=== PATIENT | female | born 1955 | race African-American/Black ===

== ENCOUNTER → 2016-05-05 | Outpatient (CLI) | payer MEDICARE, OTHER ==
[2015-12-10 02:05] VITALS: BP 206/97
[~2016-05-05] MED LIST: ASPI-482 PO; CHOL500050 PO; CYCL10TA2 PO; DOCU-27 PO; ESTR30CR VG; GLIP5TAB10 PO; IBUP200T77 PO; LISI10TA2 PO; METF10002 PO; OXYC-323 PO; PRAV10TA2 PO; SITA100T PO
--- NOTE | 2016-05-05 13:23 | RAD ---
Chest, 2 views, 05/05/2016: History: Chest congestion and cough Comparison is made to a study from 12/10/2015. The heart size and pulmonary vascularity are normal. On the lateral view there appears to be minimal infiltrate posteriorly in one of the lung bases. This probably lies on the right. The lungs are otherwise clear. No pleural fluid is evident. IMPRESSION: Probable minimal right basilar pneumonitis.
== END | disposition home or self-care (01) ==
LOC: RAD 11:37
PROVIDERS: ATTEND Family Medicine
DX: R09.89 Other specified symptoms and signs involving the circulatory and respiratory systems (principal); R91.8 Other nonspecific abnormal finding of lung field
CPT/HCPCS: 71020

== ENCOUNTER → 2016-08-17 | Outpatient (CLI) | payer MEDICARE, OTHER ==
[2015-12-10 02:05] VITALS: BP 206/97
[2016-08-17 10:17] LABS: ALBUMIN 3.2 g/dL (3.4-5.0); ALBUMIN/GLOBULIN RATIO 0.8 (1.0-1.7); CALCIUM 8.9 mg/dL (8.5-10.1); CREATININE 0.6 mg/dL (0.6-1.0); GFR 123.4; POTASSIUM 4.4 mmol/L (3.5-5.1); TOTAL BILIRUBIN 0.2 mg/dL (0.2-1.0)
[2016-08-17 10:20] LABS: CHOLESTEROL/HDL RATIO 4.7
[2016-08-18 02:12] LABS: VITAMIN D25(OH)TOTAL 12.5 ng/mL (30.0-100.0)
== END | disposition home or self-care (01) ==
LOC: LAB 09:15
PROVIDERS: ATTEND Family Medicine
DX: E11.9 Type 2 diabetes mellitus without complications (principal); E55.9 Vitamin D deficiency, unspecified; E78.5 Hyperlipidemia, unspecified
CPT/HCPCS: 36415; 80053; 80061; 82306; 83036

== ENCOUNTER 2016-12-28 20:42 | Emergency (ER) | payer MEDICARE, OTHER ==
[~2016-12-28] VITALS: Ht 157.5 cm; Wt 59.0 kg
[~2016-12-28 20:42] MED LIST changes: +DOCU-109 PO; -DOCU-27 PO; +METF-620 PO; -METF10002 PO
[2016-12-28] MEDS ORDERED: IV NORMAL SALINE 500ML BAG 500 ML IV ONE (22:00)
[2016-12-28 22:16] LABS: BASO # 0.1 x10^3/uL (0.0-0.2); BASO % 1 % (0-3); EOS % 2 % (0-3); HEMATOCRIT 40.6 % (36.0-47.0); HEMOGLOBIN 13.4 g/dL (12.0-15.5); LYMPH # 1.5 x10^3/uL (1.0-4.8); LYMPH % 16 % (24-48); MEAN CORPUSCULAR HEMOGLOBIN 31 pg (25-35); MEAN CORPUSCULAR HGB CONC 33 g/dL (31-37); MEAN CORPUSCULAR VOLUME 93 fL (79-100); MONO % 10 % (0-9); NEUT % 72 % (31-73); PLATELET COUNT 369 x10^3/uL (140-400); RED BLOOD COUNT 4.36 x10^6/uL (3.50-5.40); RED CELL DISTRIBUTION WIDTH 13.6 % (11.5-14.5); WHITE BLOOD COUNT 9.7 x10^3/uL (4.0-11.0)
[2016-12-28 22:28] LABS: CREATININE 0.7 mg/dL (0.6-1.0); GFR 102.9; POTASSIUM 4.2 mmol/L (3.5-5.1)
[2016-12-28 23:00] VITALS: BP 169/79
[2016-12-28] MEDS ORDERED: AZIT250T PO (23:15)
--- NOTE | 2016-12-28 23:16 | PHYS DOC ---
Past Medical History Past Medical History: Diabetes-Type II, High Cholesterol, Hypertension Past Surgical History: Hysterectomy, Other Additional Past Surgical Histo: BX VAGINA, right shoulder Alcohol Use: None Drug Use: None Adult General Chief Complaint Chief Complaint: Congestion HPI HPI 21-year-old female with a history of type 2 diabetes and long-term tobacco abuse quit one year ago now presents the emergency department complaining of productive cough. Patient denies fevers chills sweats or shaking chills. She states she has a vault a mildly productive cough over the last Ovral days. She has no headache or stiff neck. She does have some discomfort with coughing but does not have exertional chest pain or pleuritic pain. Was concerned she had a pulmonary infection since she came to the emergency department. Review of Systems Review of Systems Constitutional: Denies fever or chills [] Eyes: Denies change in visual acuity, redness, or eye pain [] HENT: Denies nasal congestion or sore throat [] Respiratory: Denies cough or shortness of breath [] Cardiovascular: No additional information not addressed in HPI [] GI: Denies abdominal pain, nausea, vomiting, bloody stools or diarrhea [] : Denies dysuria or hematuria [] Musculoskeletal: Denies back pain or joint pain [] Integument: Denies rash or skin lesions [] Neurologic: Denies headache, focal weakness or sensory changes [] Endocrine: Denies polyuria or polydipsia [] Current Medications Current Medications Current Medications Medications (Trade) Dose Ordered Sig/Giorgio Start Time Stop Time Status Last Admin Dose Admin Sodium Chloride 500 ml @ 500 mls/hr 1X ONCE 12/28/16 22:00 12/28/16 22:59 DC 12/28/16 22:33 500 MLS/HR Allergies Allergies Allergies Coded Allergies Type Severity Reaction Last Updated Verified codeine Adverse Reaction Intermediate Nausea and Vomiting 09/11/15 Yes Physical Exam Physical Exam Well-appearing 61-year-old female no acute distress no tachypnea normal respiratory rate and pulse ox. Occasional scattered rhonchi bilaterally with no wheezes rales or rubs. Regular rate and rhythm no tachycardia. Benign abdomen. Remainder of exam is unremarkable. Nonfocal neurologically. Constitutional: Well developed, well nourished, no acute distress, non-toxic appearance. [] HENT: Normocephalic, atraumatic, bilateral external ears normal, oropharynx moist, no oral exudates, nose normal. [] Eyes: PERRLA, EOMI, conjunctiva normal, no discharge. [] Neck: Normal range of motion, no tenderness, supple, no stridor. [] Cardiovascular:Heart rate regular rhythm, no murmur [] Lungs & Thorax: As above Abdomen: Bowel sounds normal, soft, no tenderness, no masses, no pulsatile masses. [] Skin: Warm, dry, no erythema, no rash. [] Back: No tenderness, no CVA tenderness. [] Extremities: No tenderness, no cyanosis, no clubbing, ROM intact, no edema. [] Neurologic: Alert and oriented X 3, normal motor function, normal sensory function, no focal deficits noted. [] Psychologic: Affect normal, judgement normal, mood normal. [] Current Patient Data Vital Signs Vital Signs Date Time Temp Pulse Resp B/P (MAP) Pulse Ox O2 Delivery O2 Flow Rate FiO2 12/28/16 21:07 99.2 99 22 187/93 (124) 97 Room Air 99.2 Lab Values Laboratory Tests Test 12/28/16 21:04 White Blood Count 9.7 x10^3/uL (4.0-11.0) Red Blood Count 4.36 x10^6/uL (3.50-5.40) Hemoglobin 13.4 g/dL (12.0-15.5) Hematocrit 40.6 % (36.0-47.0) Mean Corpuscular Volume 93 fL (79-100) Mean Corpuscular Hemoglobin 31 pg (25-35) Mean Corpuscular Hemoglobin Concent 33 g/dL (31-37) Red Cell Distribution Width 13.6 % (11.5-14.5) Platelet Count 369 x10^3/uL (140-400) Neutrophils (%) (Auto) 72 % (31-73) Lymphocytes (%) (Auto) 16 % (24-48) L Monocytes (%) (Auto) 10 % (0-9) H Eosinophils (%) (Auto) 2 % (0-3) Basophils (%) (Auto) 1 % (0-3) Neutrophils # (Auto) 7.0 x10^3uL (1.8-7.7) Lymphocytes # (Auto) 1.5 x10^3/uL (1.0-4.8) Monocytes # (Auto) 1.0 x10^3/uL (0.0-1.1) Eosinophils # (Auto) 0.2 x10^3/uL (0.0-0.7) Basophils # (Auto) 0.1 x10^3/uL (0.0-0.2) Sodium Level 136 mmol/L (136-145) Potassium Level 4.2 mmol/L (3.5-5.1) Chloride Level 99 mmol/L (98-107) Carbon Dioxide Level 29 mmol/L (21-32) Anion Gap 8 (6-14) Blood Urea Nitrogen 8 mg/dL (7-20) Creatinine 0.7 mg/dL (0.6-1.0) Estimated GFR (Cockcroft-Gault) 102.9 Glucose Level 202 mg/dL (70-99) H Calcium Level 9.0 mg/dL (8.5-10.1) Troponin I Quantitative < 0.017 ng/mL (0.000-0.055) Laboratory Tests 12/28/16 21:04 Laboratory Tests 12/28/16 21:04 EKG EKG EKG with normal sinus rhythm at 100 normal axis no STEMI interpreted by me [] Radiology/Procedures Radiology/Procedures Chest x-ray with chronic changes no acute disease interpreted by ak Course & Med Decision Making Course & Med Decision Making Pertinent Labs and Imaging studies reviewed. (See chart for details) Signs and symptoms consistent with bronchitis versus atypical pneumonia versus possible pneumonia. I unremarkable the patient does have persistent DRY cough sometimes unrelenting. Normal respiratory rate and pulse ox. Chest x-ray unremarkable EKG benign. Remainder of labs so benign. Patient stable on multiple re-evaluations. We'll prescribe Zithromax and she's were to use Mucinex DM as needed. No further workup or treatment indicated. Patient agrees with outpatient follow-up and strict return precautions given. [] Dragon Disclaimer Dragon Disclaimer This electronic medical record was generated, in whole or in part, using a voice recognition dictation system. Departure Departure Impression: Primary Impression: Atypical pneumonia Additional Impression: Cough Disposition: HOME, SELF-CARE Condition: GOOD Referrals: OFELIA ZHONG MD (PCP) Additional Instructions: Findings are consistent with a respiratory infection and possible atypical pneumonia. Atypical Money is also known as walking pneumonia and is a low-grade infection that causes dry cough which is persistent sometimes for weeks and does not resolve without anabolic treatment. We did new Zithromax as a prescription to cover this. Use Mucinex DM as needed for cough and to break up mucus. Rest and drink plenty of fluids. Follow-up with your doctor in 1 day and return immediately for new severe or worsening symptoms. Scripts Azithromycin (ZITHROMAX) 250 Mg Tablet 1 PKG PO UD, #6 TAB Take 2 tablets on day 1 and 1 tablet a day for the remaining 4 days Prov: SYLVIA LEY MD 12/28/16 Problem Qualifiers SYLVIA LEY MD Dec 28, 2016 23:16
--- NOTE | 2016-12-29 08:16 | RAD ---
Exam performed: One view chest. Indication: , Shortness of breath Date of Service: 12/28/2016 11:53 PM Comparison: 05/05/16 Single AP upright portable view chest findings: Cardiomediastinal silhouette is within limits of normal. No acute infiltrates, effusion or pneumothorax is detected. The bony structures are normal. Impression: No acute cardiopulmonary process is detected.
--- NOTE | 2016-12-29 08:17 | EKG ---
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
== END 2016-12-28 23:22 | disposition home or self-care (01) ==
LOC: ER 20:42
DX: J18.9 Pneumonia, unspecified organism (principal); R07.89 Other chest pain; E11.9 Type 2 diabetes mellitus without complications; E78.00 Pure hypercholesterolemia, unspecified; I10 Essential (primary) hypertension; Z87.891 Personal history of nicotine dependence; Z88.5 Allergy status to narcotic agent
CPT/HCPCS: 36415; 71010; 80048; 84484; 85025; 93005; 96360; 99285; J7040

== ENCOUNTER → 2017-01-01 | Outpatient (CLI) | payer MEDICARE, OTHER ==
[2016-12-28 23:00] VITALS: BP 169/79
[~2017-01-01] MED LIST changes: +AZIT250T PO
[2017-01-01 17:09] LABS: ALBUMIN 3.2 g/dL (3.4-5.0); ALBUMIN/GLOBULIN RATIO 0.9 (1.0-1.7); CALCIUM 9.3 mg/dL (8.5-10.1); CHOLESTEROL/HDL RATIO 3.8; CREATININE 0.6 mg/dL (0.6-1.0); POTASSIUM 4.1 mmol/L (3.5-5.1); TOTAL BILIRUBIN 0.2 mg/dL (0.2-1.0); TOTAL PROTEIN 6.9 g/dL (6.4-8.2)
== END | disposition home or self-care (01) ==
LOC: LAB 16:22
PROVIDERS: ATTEND Family Medicine
DX: E11.9 Type 2 diabetes mellitus without complications (principal); E78.5 Hyperlipidemia, unspecified
CPT/HCPCS: 36415; 80053; 80061; 83036

== ENCOUNTER → 2017-07-28 | Outpatient (CLI) | payer MEDICARE, OTHER ==
[2017-07-28 10:08] LABS: ADD MAN DIFF? NO
[2017-07-28 10:18] LABS: BASO # 0.1 x10^3/uL (0.0-0.2); BASO % 1 % (0-3); EOS # 0.1 x10^3/uL (0.0-0.7); EOS % 1 % (0-3); HEMATOCRIT 42.1 % (36.0-47.0); HEMOGLOBIN 13.8 g/dL (12.0-15.5); LYMPH % 28 % (24-48); MEAN CORPUSCULAR HEMOGLOBIN 30 pg (25-35); MEAN CORPUSCULAR HGB CONC 33 g/dL (31-37); MEAN CORPUSCULAR VOLUME 91 fL (79-100); MONO # 0.7 x10^3/uL (0.0-1.1); MONO % 7 % (0-9); NEUT # 6.8 x10^3uL (1.8-7.7); NEUT % 63 % (31-73); PLATELET COUNT 385 x10^3/uL (140-400); RED BLOOD COUNT 4.62 x10^6/uL (3.50-5.40); RED CELL DISTRIBUTION WIDTH 13.7 % (11.5-14.5); WHITE BLOOD COUNT 10.8 x10^3/uL (4.0-11.0)
[2017-07-28 10:33] LABS: ALBUMIN 3.4 g/dL (3.4-5.0); ALBUMIN/GLOBULIN RATIO 0.8 (1.0-1.7); ALK PHOS 105 U/L (46-116); ALT (SGPT) 26 U/L (14-59); ANION GAP 8 (6-14); AST (SGOT) 7 U/L (15-37); BLOOD UREA NITROGEN 8 mg/dL (7-20); BUN/CREATININE RATIO 10 (6-20); CALCIUM 9.5 mg/dL (8.5-10.1); CARBON DIOXIDE 29 mmol/L (21-32); CHLORIDE 102 mmol/L (98-107); CHOLESTEROL 175 mg/dL (0-200); CREATININE 0.8 mg/dL (0.6-1.0); GFR 88.2; GLUCOSE 248 mg/dL (70-99); HDLC 57 mg/dL (40-60); LDLC 95 mg/dL (0-100); NON-HDL CHOLESTEROL 118 mg/dL (0-129); POTASSIUM 3.8 mmol/L (3.5-5.1); SODIUM 139 mmol/L (136-145); TOTAL BILIRUBIN 0.2 mg/dL (0.2-1.0); TOTAL PROTEIN 7.5 g/dL (6.4-8.2); TRIGLYCERIDES 116 mg/dL (0-150); VLDLC 23 mg/dL (0-40)
[2017-07-28 10:38] LABS: CHOLESTEROL/HDL RATIO 3.1
[2017-07-28 10:44] LABS: THYROID STIM HORMONE (TSH) 1.559 uIU/mL (0.358-3.74)
[2017-07-28 21:11] LABS: THYROXINE 8.1 ug/dL (4.5-12.0)
[2017-07-29 04:21] LABS: HEMOGLOBIN A1C 11.3 % (4.8-5.6)
== END | disposition home or self-care (01) ==
LOC: LAB 09:46
DX: E11.9 Type 2 diabetes mellitus without complications (principal); E55.9 Vitamin D deficiency, unspecified; E78.5 Hyperlipidemia, unspecified; R53.83 Other fatigue
CPT/HCPCS: 36415; 80053; 80061; 82306; 83036; 84436; 84443; 85025

== ENCOUNTER → 2018-06-02 | Outpatient (CLI) | payer MEDICARE, OTHER ==
[~2018-06-02] MED LIST changes: -METF-620 PO; +METF10007 PO; -OXYC-323 PO; +OXYC1TAB15 PO
[2018-06-02 14:50] LABS: HEMATOCRIT 46.2 % (36.0-47.0); HEMOGLOBIN 15.1 g/dL (12.0-15.5); RED BLOOD COUNT 5.03 x10^6/uL (3.50-5.40); RED CELL DISTRIBUTION WIDTH 14.3 % (11.5-14.5); WHITE BLOOD COUNT 9.4 x10^3/uL (4.0-11.0)
[2018-06-02 15:10] LABS: ALBUMIN 3.5 g/dL (3.4-5.0); ALBUMIN/GLOBULIN RATIO 0.8 (1.0-1.7); CALCIUM 9.6 mg/dL (8.5-10.1); CREATININE 0.7 mg/dL (0.6-1.0); GFR 102.6; POTASSIUM 3.7 mmol/L (3.5-5.1); TOTAL BILIRUBIN 0.3 mg/dL (0.2-1.0)
[2018-06-02 15:13] LABS: CHOLESTEROL/HDL RATIO 5.3
== END | disposition home or self-care (01) ==
LOC: LAB 14:15
PROVIDERS: ATTEND Family Medicine
DX: E55.9 Vitamin D deficiency, unspecified (principal); E78.5 Hyperlipidemia, unspecified; R53.83 Other fatigue
CPT/HCPCS: 36415; 80053; 80061; 82306; 84436; 84443; 85027

== ENCOUNTER → 2018-06-10 | Outpatient (CLI) | payer MEDICARE, OTHER ==
--- NOTE | 2018-06-10 15:21 | RAD ---
DATE: 06/10/2018 EXAM: MAMMO GILMA SCREENING BILATERAL HISTORY: Routine screening COMPARISON: 08/22/2015 screen mammographic exam This study was interpreted with the benefit of Computerized Aided Detection (CAD). Breast Density: SCATTERED The breast parenchyma shows scattered fibroglandular densities. Breast parenchyma level B. FINDINGS: MLO and CC images of each breast were obtained. Tomosynthesis was performed. Small mass involving the left anterior retroareolar region is stable. No suspicious new mass or distortion. Calcifications are benign in appearance. No suspicious calcification grouping. IMPRESSION: Benign and stable. BI-RADS CATEGORY: 2 BENIGN FINDING(S) RECOMMENDED FOLLOW-UP: 12M 12 MONTH FOLLOW-UP PQRS compliance statement: Patient information was entered into a reminder system with a target due date in one year for the next mammogram. Mammography is a sensitive method for finding small breast cancers, but it does not detect them all and is not a substitute for careful clinical examination. A negative mammogram does not negate a clinically suspicious finding and should not result in delay in biopsying a clinically suspicious abnormality. "Our facility is accredited by the [employer] Mammography Program."
== END | disposition home or self-care (01) ==
LOC: MAMMO 12:50
PROVIDERS: ATTEND Family Medicine
DX: Z12.31 Encounter for screening mammogram for malignant neoplasm of breast (principal); N63.42 Unspecified lump in left breast, subareolar
CPT/HCPCS: 77063; 77067

== ENCOUNTER → 2018-07-14 | Day surgery (SDC) | payer MEDICARE, OTHER ==
[~2018-07-14] MED LIST changes: +EMPA10TA PO; +IV RINGERS,LACTATED 1000ML 1,000 ML IV SCH; +LIDOCAINE 1% PF 2 ML VIAL. ID PRN; +LOSA50TA15 PO; +PROCHLORPERAZINE 10 MG/2 ML VIAL. IV PRN; +PROPOFOL 40 ML IV ONE; +fentaNYL PF VIAL 100 MCG/2 ML VIAL IV PRN
[2018-07-14 12:49] VITALS: BP 145/70
--- NOTE | 2018-07-18 11:08 | PATHOLOGY ---
[facility] Accession Number: [id number] . 01 Material submitted: . DESCENDING COLON POLYP . 01 Clinical history: . CRC Screen . 02 Diagnosis: Colon biopsy, descending colon polyp: - Hyperplastic polyp. . (JPM:mml; 07/15/2018) QL/07/15/2018 . 02 Comment: Sections of the descending colon biopsy reveal a hyperplastic polyp showing coagulation artifact. There is no high grade dysplasia or evidence of malignancy. . (JPM:mml; 07/15/2018) . 02 Electronically signed: . Abimael Knox MD, Pathologist NPI- [id number] . 01 Gross description: . Received in formalin labeled "Juany Guzman, descending colon polyp," is a single segment of doran soft tissue measuring 0.4 cm in maximum dimension. The specimen is entirely submitted in cassette A1. (TSD; 07/14/2018) TOB/TOB . 02 Pathologist provided ICD-10: K63.5 . 02 CPT . 934678 Specimen Comment: A courtesy copy of this report has been sent to Specimen Comment: [phone], . Specimen Comment: Report sent to / DR ZHONG Specimen Comment: A duplicate report has been generated due to demographic updates. Performed at: 01 [facility] [address] [facility] [address] [place], [place] [id number] MD Luigi Castellano MD Phone: [phone] Performed at: [facility] [address] [place], [place] [id number] MD Abimael Knox MD Phone: [phone]
== END | disposition home or self-care (01) ==
LOC: SURG 10:49
PROVIDERS: ATTEND Internal Medicine Gastroenterology
DX: Z12.11 Encounter for screening for malignant neoplasm of colon (principal); K63.5 Polyp of colon; K64.0 First degree hemorrhoids; I10 Essential (primary) hypertension; E11.9 Type 2 diabetes mellitus without complications; K21.9 Gastro-esophageal reflux disease without esophagitis; E78.00 Pure hypercholesterolemia, unspecified; Z79.84 Long term (current) use of oral hypoglycemic drugs; Z88.5 Allergy status to narcotic agent; Z79.899 Other long term (current) drug therapy; Z79.82 Long term (current) use of aspirin; Z90.710 Acquired absence of both cervix and uterus; Z72.0 Tobacco use
CPT/HCPCS: 45385; 82962; 88305; J2704; 45380